=== PATIENT | female | born 1940 | race Caucasian/White ===

== ENCOUNTER 2020-01-29 13:23 | Emergency (ER) | payer MEDICARE ==
[~2020-01-29] VITALS: Ht 162.6 cm; Wt 102.3 kg
--- NOTE | 2020-01-29 14:02 | NUR ---
PT WENT TO [facility] IN 1990 AND WAS DX WITH VERTIGO AFTER SIMILAR SYMPTOMS TODAY
[2020-01-29 14:31] LABS: BASOPHILS % (AUTO) 0.6 % (0-1); EOSINOPHILS # (AUTO) 0.1 X10'3 (0-0.9); HEMATOCRIT 40.4 % (35.0-45.0); HEMOGLOBIN 13.7 g/dl (12.0-16.0); LYMPHOCYTES # (AUTO) 1.5 X10'3 (1.1-4.8); LYMPHOCYTES % (AUTO) 22.8 % (21-51); MEAN CORPUSCULAR HEMOGLOBIN 30.6 PG (27.0-31.0); MEAN PLATELET VOLUME 7.1 FL (7.4-10.4); MONOCYTES # (AUTO) 0.4 X10'3 (0-0.9); MONOCYTES % (AUTO) 5.5 % (2-12); NEUTROPHILS # (AUTO) 4.7 X10'3 (1.8-7.7); NEUTROPHILS % (AUTO) 70.1 % (42-75); PLATELET COUNT 224 X10'3 (140-440); RED BLOOD COUNT 4.49 X10'6 (4.20-5.60); RED CELL DISTRIBUTION WIDTH 13.1 % (11.5-14.5); WHITE BLOOD COUNT 6.7 X10'3 (4.5-11.0)
[2020-01-29 14:46] LABS: ALANINE AMINOTRANSFERASE 28 U/L (12-78); ALBUMIN 3.8 G/DL (3.4-5.0); ALBUMIN/GLOBULIN RATIO 1.1 (1.1-1.5); ALKALINE PHOSPHATASE 68 IU/L (46-116); ANION GAP 7 (8-16); ASPARTATE AMINO TRANSFERASE 28 U/L (10-37); BILIRUBIN,TOTAL 0.3 MG/DL (0.1-1.0); BLOOD UREA NITROGEN 11 MG/DL (7-18); BUN/CREATININE RATIO 12.4 (6.6-38.0); CALCIUM 9.1 MG/DL (8.5-10.1); CHLORIDE 106 MMOL/L (99-107); CREATININE 0.89 MG/DL (0.40-0.90); GLUCOSE 129 MG/DL (70-104); POTASSIUM 3.7 MMOL/L (3.5-5.1); SODIUM 140 MMOL/L (135-145); TOTAL PROTEIN 7.4 G/DL (6.4-8.2); eGFR 61 ML/MIN
[2020-01-29] MEDS ORDERED: meclizine 12.5mg tablet PO ONE (15:30)
[2020-01-29] MEDS ORDERED: ondansetron 4mg rapidly disintigrating tab PO ONE (15:30)
[2020-01-29] MEDS ORDERED: normal saline 1000ML IV soln IVB ONE (16:00)
[2020-01-29] MEDS ORDERED: MECL-159 PO (18:25)
[2020-01-29] MEDS ORDERED: ONDA4TAB6 PO (18:25)
[2020-01-29 18:45] VITALS: BP 136/76
== END 2020-01-29 18:46 | disposition home or self-care (01) ==
LOC: ER 13:23
DX: R07.89 Other chest pain (principal); R42 Dizziness and giddiness; R11.0 Nausea; R51 Headache; Z88.2 Allergy status to sulfonamides; Z88.5 Allergy status to narcotic agent; Z79.899 Other long term (current) drug therapy
CPT/HCPCS: 36415; 71045; 80053; 82948; 84484; 85025; 93005; 99285; J7030; J8597

== ENCOUNTER 2023-11-23 16:57 | Emergency (ER) | payer MEDICARE ==
[~2023-11-23] VITALS: Ht 162.6 cm; Wt 58.0 kg
[~2023-11-23 16:57] MED LIST: MECL-302 PO; ONDA4TAB6 PO
[2023-11-23 17:30] LABS: BILIRUBIN,URINE NEGATIVE (Neg); CLARITY,URINE CLOUDY (Clear); COLOR,URINE YELLOW (Yellow); GLUCOSE, URINE NEGATIVE (Neg); KETONES,URINE NEGATIVE (Neg); LEUKOCYTE ESTERASE ,URINE MODERATE (Neg); NITRITES, URINE NEGATIVE (Neg); OCCULT BLOOD,URINE TRACE-INTACT (Neg); PROTEIN,URINE 30 mg/dl (Neg); UROBILINOGEN,URINE 0.2 E.U/dL (0.2-1.0)
[2023-11-23 17:32] LABS: UA COLLECTION TYPE CLN CATCH MIDSTREAM
[2023-11-23 17:40] LABS: BASOPHILS # (AUTO) 0.1 X10'3 (0-0.2); BASOPHILS % (AUTO) 0.5 % (0-1); EOSINOPHILS % (AUTO) 0.3 % (0-6); HEMATOCRIT 39.9 % (35.0-45.0); HEMOGLOBIN 13.5 g/dl (12.0-16.0); LYMPHOCYTES # (AUTO) 0.8 X10'3 (1.1-4.8); MEAN CORPUSCULAR HEMOGLOBIN 30.9 PG (27.0-31.0); MEAN CORPUSCULAR HGB CONC 33.9 g/dL (33.0-36.5); MEAN CORPUSCULAR VOLUME 91.3 FL (78-98); MEAN PLATELET VOLUME 6.9 FL (7.4-10.4); MONOCYTES # (AUTO) 0.2 X10'3 (0-0.9); MONOCYTES % (AUTO) 1.7 % (2-12); NEUTROPHILS % (AUTO) 90.5 % (42-75); PLATELET COUNT 198 X10'3 (140-440); RED BLOOD COUNT 4.37 X10'6 (4.20-5.60); WHITE BLOOD COUNT 11.1 X10'3 (4.5-11.0)
[2023-11-23 17:55] LABS: SQUAMOUS EPITHELIAL CELL,UR MANY /LPF (FEW)
[2023-11-23 17:56] LABS: WBC CLUMPS,URINE MANY /HPF (NEGATIVE)
[2023-11-23 17:57] LABS: TRANSITIONAL EPI CELLS,URINE FEW /HPF
[2023-11-23 17:58] LABS: WBC,URINE TNTC /HPF (0-4)
[2023-11-23 17:59] LABS: BACTERIA,URINE 2+ /HPF (Neg)
[2023-11-23 18:02] LABS: ALANINE AMINOTRANSFERASE 29 U/L (12-78); ALBUMIN 3.7 G/DL (3.4-5.0); ALBUMIN/GLOBULIN RATIO 0.9 (1.1-1.5); ALKALINE PHOSPHATASE 65 IU/L (46-116); ANION GAP 10 (8-16); ASPARTATE AMINO TRANSFERASE 31 U/L (10-37); BILIRUBIN,TOTAL 0.7 MG/DL (0.1-1.0); BLOOD UREA NITROGEN 16 MG/DL (7-18); CALCIUM 8.9 MG/DL (8.5-10.1); CHLORIDE 102 MMOL/L (99-107); CREATININE 1.14 MG/DL (0.40-0.90); GLUCOSE 123 MG/DL (70-104); POTASSIUM 3.8 MMOL/L (3.5-5.1); SODIUM 138 MMOL/L (135-145); TOTAL CARBON DIOXIDE 26.5 MMOL/L (24-32); TOTAL PROTEIN 7.9 G/DL (6.4-8.2); eCRCL 32 ML/MIN; eGFR 46 ML/MIN
[2023-11-23] MEDS ORDERED: iohexol 300mg/ml 100ml inj. ONE (18:30)
[2023-11-23] MEDS ORDERED: normal saline 1000ML IV soln IVB ONE (18:35)
[2023-11-23] MEDS ORDERED: CefTRIAXone 2gm/D5W 50ml BAG 50 ML IV ONE (18:35)
[2023-11-23] MEDS ORDERED: acetaminophen 325mg tablet PO ONE (19:35)
[2023-11-23] MEDS ORDERED: normal saline 1000ml 1,000 ML IV ONE (20:00)
[2023-11-23] MEDS ORDERED: CEFU250T95 PO (21:12)
[2023-11-23 21:34] VITALS: BP 106/62; PULSE 90; RESP 17; TEMP 99; O2SAT 94
== END 2023-11-23 21:34 | disposition home or self-care (01) ==
LOC: ER 16:58
DX: N39.0 Urinary tract infection, site not specified (principal); Z88.2 Allergy status to sulfonamides; Z79.899 Other long term (current) drug therapy
CPT/HCPCS: 36415; 71045; 80053; 81001; 83605; 84145; 85025; 87040; 87077; 87186; 96361; 96365; 99284; J0696; J7030; J3490; Q9967